=== PATIENT | female | born 1940 | race Caucasian/White ===

== ENCOUNTER 2021-05-31 13:15 | Emergency (ER) | payer OTHER ==
[~2021-05-31 13:15] MED LIST: ALLOPURINOL100 MG PO; GLUCOSAMINE HC500 MG PO; INDERAL20 MG PO; INDOCIN25 MG PO; METFORMIN HCL500 MG PO; PRINIVIL20 MG PO
[2021-05-31] MEDS ORDERED: ACYCLOVIR800 MG PO (14:25)
[2021-05-31] MEDS ORDERED: MEDROL 4MG DOSEP4 MG PO (14:25)
== END 2021-05-31 14:55 | disposition home or self-care (01) ==
LOC: FER 13:15
DX: B02.9 Zoster without complications (principal)
CPT/HCPCS: 99283